=== PATIENT | female | born 1965 | race Caucasian/White ===

== ENCOUNTER 2016-08-06 20:06 | Observation (INO) | payer BC ==
[~2016-08-06] VITALS: Ht 175.3 cm; Wt 85.0 kg
[~2016-08-06 20:06] MED LIST: BAYER CHEWABLE81 MG PO; FLEXERIL10 MG PO; HYDROCODON-ACE1 EAC2 PO; NEURONTIN800 MG PO; PAIN RELIEVER650 MG PO; TOPROL XL100 MG PO
[2016-08-06 20:25] LABS: BASO % 0.2 % (0.1-1.2); EOS # 0.1 10_X3_uL (0.0-0.4); EOS % 1.4 % (0.7-5.8); GRAN # 6.6 10_X3_uL (1.6-6.1); GRAN % 65.7 % (34.0-71.1); HEMATOCRIT 40.1 % (34-45); HEMOGLOBIN 13.6 g/dL (11.2-15.7); LYMPH # 2.1 10_X3_uL (1.2-3.7); LYMPH % 21.4 % (19.3-51.7); MEAN CORPUSCULAR HEMOGLOBIN 31.1 pg (27.0-33.0); MEAN CORPUSCULAR HGB CONC 33.9 g/dL (32.0-36.0); MEAN CORPUSCULAR VOLUME 91.6 fL (79-95); MEAN PLATELET VOLUME 8.9 fl (7.5-11.5); MONO # 1.1 10_X3_uL (0.2-0.9); MONO % 11.3 % (4.7-12.5); PLATELET COUNT 337 x10_3/uL (182-369); RED BLOOD COUNT 4.38 x10_6/uL (3.9-5.2); RED CELL DISTRIBUTION WIDTH 12.7 % (11.7-14.4)
[2016-08-06 20:38] LABS: ALBUMIN 4.9 gm/dL (3.4-5.0); ALKALINE PHOSPHATASE 64 U/L (50-136); ALT/SGPT 15 U/L (3.5-33.9); AST/SGOT 19 U/L (7.04-26.96); BILIRUBIN,TOTAL 0.61 mg/dL (0.0-1.0); BLOOD UREA NITROGEN 11 mg/dL (7-18); CALCIUM 9.2 mg/dL (8.7-10.7); CARBON DIOXIDE 25 mmol/L (21-32); CREATINE KINASE 81 U/L (21-215); CREATININE 0.9 mg/dL (0.6-1.3); GLUCOSE,RANDOM 104 mg/dL (70-99); SODIUM 136 mmol/L (136-145); TOTAL PROTEIN 7.7 gm/dL (6.4-8.2)
[2016-08-06 20:46] LABS: POTASSIUM 2.9 mmol/L (3.5-5.1)
[2016-08-06 23:44] LABS: INR 1.1 (1.0-1.1); PARTIAL THROMBOPLASTIN TIME 25.3 SECONDS (21.8-28.4); PROTHROMBIN TIME (PATIENT) 10.8 SECONDS (9.6-10.8)
[2016-08-07 02:12] LABS: CKMB 2.1 ng/ml (0.0-5.0)
[2016-08-07 02:13] LABS: TROP-I < 0.30 NG/ML (0.00-0.30)
[2016-08-07 08:29] LABS: CKMB 1.9 ng/ml (0.0-5.0)
[2016-08-07 08:30] LABS: TROP-I < 0.30 NG/ML (0.00-0.30)
[2016-08-07 14:31] LABS: CKMB 1.6 ng/ml (0.0-5.0); TROP-I < 0.30 NG/ML (0.00-0.30)
== END 2016-08-07 16:20 | disposition home or self-care (01) ==
LOC: ER 20:06 → MS 22:27
PROVIDERS: Internal Medicine; ADMIT Family Medicine
DX: R07.89 Other chest pain (principal); F41.9 Anxiety disorder, unspecified; I10 Essential (primary) hypertension; E87.6 Hypokalemia; F32.9 Major depressive disorder, single episode, unspecified; R42 Dizziness and giddiness; K62.89 Other specified diseases of anus and rectum; R19.7 Diarrhea, unspecified; R53.83 Other fatigue; K21.9 Gastro-esophageal reflux disease without esophagitis; R00.2 Palpitations; J02.9 Acute pharyngitis, unspecified; E78.5 Hyperlipidemia, unspecified; Z80.9 Family history of malignant neoplasm, unspecified; Z79.891 Long term (current) use of opiate analgesic; Z79.899 Other long term (current) drug therapy; Z88.1 Allergy status to other antibiotic agents; Z88.2 Allergy status to sulfonamides
CPT/HCPCS: 36415; 71020; 80053; 80061; 82550; 82553; 84132; 85025; 85379; 85610; 85730; 93005; 93041; 96374; 96375; 96376; 99070; 99285-25; G0378; J3480

== ENCOUNTER → 2016-09-05 | Day surgery (SDC) | payer BC ==
[~2016-09-05] VITALS: Ht 175.3 cm; Wt 85.7 kg
== END ==
LOC: OPS 08:04
PROC: 0DBM8ZX Excision of Descending Colon, Via Natural or Artificial Opening Endoscopic, Diagnostic (ICD-10-PCS; principal; 2016-09-05)
DX: D12.4 Benign neoplasm of descending colon (principal); K62.89 Other specified diseases of anus and rectum; F41.9 Anxiety disorder, unspecified; M50.20 Other cervical disc displacement, unspecified cervical region; F32.9 Major depressive disorder, single episode, unspecified; K21.9 Gastro-esophageal reflux disease without esophagitis; I10 Essential (primary) hypertension; M19.019 Primary osteoarthritis, unspecified shoulder; G62.9 Polyneuropathy, unspecified; M54.10 Radiculopathy, site unspecified; M67.919 Unspecified disorder of synovium and tendon, unspecified shoulder; E06.9 Thyroiditis, unspecified; Z88.2 Allergy status to sulfonamides; Z88.1 Allergy status to other antibiotic agents; Z82.49 Family history of ischemic heart disease and other diseases of the circulatory system; F17.210 Nicotine dependence, cigarettes, uncomplicated; Z79.899 Other long term (current) drug therapy; Z79.891 Long term (current) use of opiate analgesic; G40.909 Epilepsy, unspecified, not intractable, without status epilepticus; G89.29 Other chronic pain; M54.9 Dorsalgia, unspecified
CPT/HCPCS: 99070; J2704